=== PATIENT | male | born 1990 | race Two or more races ===

== ENCOUNTER 2020-07-10 12:35 | Emergency (ER) | payer SELFPAY ==
[~2020-07-10] VITALS: Ht 165.1 cm; Wt 50.0 kg
[2020-07-11 14:48] VITALS: BP 106/60
== END 2020-07-11 16:15 | disposition home or self-care (01) ==
LOC: ER 12:35
DX: S43.492A Other sprain of left shoulder joint, initial encounter (principal); Y08.89XA Assault by other specified means, initial encounter; Y93.89 Activity, other specified; Y92.89 Other specified places as the place of occurrence of the external cause; Y99.8 Other external cause status
CPT/HCPCS: 73030; 99285